=== PATIENT | female | born 1955 | race Caucasian/White ===

== ENCOUNTER 2020-07-10 09:34 | Outpatient (CLI) | payer BC, SELFPAY ==
--- NOTE | ~2020-07-10 | US_ITS ---
EXAMINATION: US thyroid DATE: 07/10/2020 10:40 INDICATION: Nontoxic single thyroid nodule. TECHNIQUE: Multiple ultrasound images of the thyroid were obtained. COMPARISON: Thyroid ultrasound 12/23/2014 FINDINGS: The right thyroid lobe measures 5.0 x 1.6 x 1.2 cm. The left thyroid lobe measures 5.2 x 1.5 x 1.2 c m. In the left thyroid lobe, there is an 8 mm solid, hypoechoic, iopjz-zigd-bvnu nodule with ill-def ined margin without echogenic foci (TI-RADS TR4). In the left thyroid lobe, there is a 5 mm solid, hy poechoic, pzvxj-xzwd-qjjz nodule with ill-defined margin without echogenic foci (TR4). There are two 3 mm nodules in right thyroid lobe. IMPRESSION: 1. Small thyroid nodules, likely not clinically significant. No follow-up is needed. Reviewed, dictated and finalized at location B. IMPRESSION: 1. Small thyroid nodules, likely not clinically significant. No follow-up is ne eded.
== END 2020-07-10 09:35 | disposition home or self-care (01) ==
PROVIDERS: PCP Internal Medicine; Visit Provider Internal Medicine
DX: E04.2 Nontoxic multinodular goiter (principal)
CPT/HCPCS: 76536

== ENCOUNTER 2022-03-05 10:03 | Outpatient (CLI) | payer BC, SELFPAY ==
--- NOTE | ~2022-03-05 | MM_ITS ---
EXAMINATION: MM screening se BI w simón HISTORY: Screening TECHNIQUE: Craniocaudal and mediolateral oblique 3-D tomosynthesis images were obtained and synthetic 2-D images were generated. CAD analysis was submitted and interpreted. COMPARISON: No prior mammogram is available for comparison at this institution. BREAST PARENCHYMAL COMPOSITION: There are scattered areas of fibroglandular density. FINDINGS: There is no evidence of suspicious mass, calcification, or architectural distortion to sugg est malignancy in either breast. There has been no suspicious interval change. IMPRESSION: 1. No mammographic evidence of malignancy. 2. Recommend routine screening mammography in one year. BI-RADS Category 1: Negative Reviewed, dictated and finalized at location A.
== END 2022-03-05 10:04 | disposition home or self-care (01) ==
PROVIDERS: PCP Internal Medicine; Visit Provider Internal Medicine
DX: Z12.31 Encounter for screening mammogram for malignant neoplasm of breast (principal)
CPT/HCPCS: 77063; 77067

== ENCOUNTER 2022-06-25 09:45 | Outpatient (CLI) | payer MEDICARE, SELFPAY ==
--- NOTE | ~2022-06-25 | DEXA_ITS ---
Bone Density Report Name: NUHA GARCIA Age: 67 Sex: Female Ethnicity: White Date of : 1955 Indication: postmenopausal; screening for osteoporosis; height loss; hysterectomy; Referring Provider: JESSICA BURK Study: Bone densitometry was performed. Exam Date: June 25, 2022 Accession number: [id number] Bone Density: Region BMD T-score Z-score Classification AP Spine(L1-L4) 1.003 -0.4 1.6 Normal Femoral Neck (Left) 0.769 -0.7 1.0 Normal Total Hip (Left) 0.916 -0.2 1.2 Normal Femoral Neck (Right) 0.776 -0.7 1.0 Normal Total Hip (Right) 0.910 -0.3 1.1 Normal Total Hip Mean 0.913 -0.3 1.2 Normal World Health Organization criteria for BMD impression classify patients as: Normal (T-score at or above -1.0), Osteopenia (T-score between -1.0 and -2.5), or Osteoporosis (T-score at or below -2.5). 10-year Fracture Risk: FRAX not reported because: All T-scores for Spine Total, Hip Total, Femoral Neck at or above -1.0 Clinical Information Provided by Patient: Has used the following medications: Vitamin D, Calcium Has the following medical conditions: Hysterectomy Patient maximum height was 67 Menopause Age: 46 Onset of menses at age 11 Number of children 0 Impression: The patient has normal bone mass. Discussion: BONE DENSITY IS ABOVE THE MINIMUM DESIRABLE LEVEL AT ALL SKELETAL SITES TESTED. This patient?s bone mineral density is above the minimum desirable level (T-score -1.0 or better) at all sites measured. The patient should follow a healthful lifestyle (good nutrition with adequate calcium and vitamin D, and appropriate weight-bearing exercise). Follow-Up: Consider repeating this study in 5 years or sooner if there is some new clinical indication. Reported by: HILARIO on 06/25/2022 10:04:00 AM. Reviewed, dictated and finalized at location ASuellen CAPUTO
== END 2022-06-25 09:46 | disposition home or self-care (01) ==
PROVIDERS: PCP Internal Medicine; Visit Provider Internal Medicine
DX: Z78.0 Asymptomatic menopausal state (principal)
CPT/HCPCS: 77080

== ENCOUNTER 2023-07-20 10:01 | Outpatient (CLI) | payer MEDICARE, SELFPAY ==
--- NOTE | ~2023-07-20 | MM_ITS ---
EXAMINATION: MM screening se BI w simón HISTORY: Screening mammogram TECHNIQUE: Craniocaudal and mediolateral oblique 3-D tomosynthesis images were obtained and synthetic 2-D images were generated. CAD analysis was submitted and interpreted. COMPARISON: March 05, 2022 bilateral screening mammogram BREAST PARENCHYMAL COMPOSITION: There are scattered areas of fibroglandular density. FINDINGS: There is no evidence of suspicious mass, calcification, or architectural distortion to sugg est malignancy in either breast. There has been no suspicious interval change. IMPRESSION: 1. No mammographic evidence of malignancy. 2. Recommend routine screening mammography in one year. BI-RADS Category 1: Negative Reviewed, dictated and finalized at location A.
== END 2023-07-20 10:02 | disposition home or self-care (01) ==
LOC: ANHIMG 10:04
PROVIDERS: PCP Internal Medicine; Visit Provider Internal Medicine
DX: Z12.31 Encounter for screening mammogram for malignant neoplasm of breast (principal)
CPT/HCPCS: 77063; 77067

== ENCOUNTER 2023-12-07 13:55 | Emergency (ER) | payer MEDICARE, SELFPAY ==
--- NOTE | ~2023-12-07 | XR_ITS ---
XR ankle RT min 3V DATE: 12/07/2023 14:30 INDICATION: Ankle fracture TECHNIQUE: 4 views COMPARISON: None FINDINGS: There is a 1.6 mm posterolaterally fracture of the lateral malleolus and 1.9 mm laterally d isplaced medial malleolar fracture. There are 2 screws in the distal shaft of the first metatarsal bone. There is mild inferior calcaneal enthesopathy. IMPRESSION: Bimalleolar fracture Reviewed, dictated and finalized at location B. CUTTER IMPRESSION: Bimalleolar fracture
[2023-12-07 14:02] VITALS: BP 133/84; PULSE 74; RESP 16; TEMP 36.6; O2SAT 98
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
== END 2023-12-07 15:23 | disposition home or self-care (01) ==
PROVIDERS: Emergency Provider Nurse Practitioner Family; PCP Internal Medicine
DX: S82.841A Displaced bimalleolar fracture of right lower leg, initial encounter for closed fracture (principal); E03.9 Hypothyroidism, unspecified; W01.0XXA Fall on same level from slipping, tripping and stumbling without subsequent striking against object, initial encounter
CPT/HCPCS: 73610; 99213; G0463

== ENCOUNTER 2024-06-17 13:09 | Emergency (ER) | payer MEDICARE, SELFPAY ==
[2024-06-17 13:28] VITALS: BP 92/60; PULSE 63; RESP 16; TEMP 36.4; O2SAT 99
--- NOTE | 2024-06-17 13:29 | ED.SKABFB ---
HPI - Skin/Abscess/Foreign Bdy General Chief complaint: Skin/Abscess/Foreign Body Stated complaint: rash all over body, pos spider bite Time Seen by Provider: 06/17/24 13:29 Source: patient, RN notes reviewed and old records reviewed Mode of arrival: ambulatory Limitations: no limitations History of Present Illness HPI narrative: patient presents complaining of a diffuse rash. She reports that she noticed an itchy bump on the back of her neck approximately 4 days ago, she reports that it felt like a mosquito bite and when her family members looked at it they said that is what it looked like. She reports that several hours later she began to notice a rash to arms, legs, trunk. She reports the rash has been spreading. She denies any shortness of breath. She reports that the rash is itchy. She denies any contact with noxious plants. She denies any change in lotions, soaps, perfumes. She denies eating any unusual foods. She voices no other concerns or complaints at this time Related Data Allergies Allergy/AdvReac Type Severity Reaction Status Date / Time codeine Allergy Unknown unknown Verified 06/17/24 13:34 Review of Systems Review of Systems: All systems reviewed & are unremarkable except as noted in HPI and below Constitutional: Constitutional: Reports no additional constitutional complaints ENT: Reports system reviewed and no additional complaints, except as documented Cardiovascular: Cardiovascular: Reports no additional cardiovascular complaints Respiratory: Respiratory: Reports no additional respiratory complaints Gastrointestinal: Gastrointestinal: Reports no additional gastrointestinal complaints Integumentary/Breasts: Skin/Breast: Reports pruritus and Reports rash Allergic/Immunologic: Allergic/Immunologic: Reports as per HPI, Denies throat swelling, Denies tongue swelling and Denies wheezing PMFSH Past Medical History Medical History Depression Hypothyroid Surgical History Surgical History H/O: hysterectomy History of foot surgery bilateral bunionectomy Family History Family History Mother Family history of dementia Patient's mother is Other Diabetes mellitus Family history of Alzheimer's disease Family history of cardiovascular disease Family history of thyroid disease Social History Social History (Reviewed 06/17/24 @ 13:54 by SUMANTH Izquierdo Smoking status: Never smoker Second hand tobacco smoke exposure: No Alcohol intake: current Substance use type: does not use Do You Feel Safe in your Home?: Yes Lack of Transportation: No Lack of Food: Never True Current Housing: I Have Housing Concerned About Future Housing: No Difficulty Paying Gas/Electric Bills: No Difficulty Paying for Meds: No Currently Unemployed: No Education: Master's Degree or Higher Difficulty w/ Childcare or Family Care: No Living arrangements: with family Occupation/Education: retired Gender identity (if verbalized by the patient): Female Comments At the time of my signature, I reviewed and agree with the nursing past medical, surgical, social, and family history. There is no relevant family history pertinent to the patient complaint. Exam Const: General: cooperative, no acute distress, alert and awake Orientation/consciousness: oriented to person, oriented to place and oriented to time HENMT: Head: normal to inspection Resp: Effort & Inspection: normal respiratory effort and able to speak in complete sentences Auscultation: clear to auscultation bilaterally, no crackles, no rales, no rhonchi and no wheezes Cardio: Palpation: normal PMI Rate: regular rate Rhythm: regular rhythm Heart sounds: S1 normal heart sound present and S2 normal heart sound present Skin: Other: di
== END 2024-06-17 14:07 | disposition home or self-care (01) ==
PROVIDERS: Emergency Provider Nurse Practitioner Family; PCP Internal Medicine
DX: T78.49XA Other allergy, initial encounter (principal); W57.XXXA Bitten or stung by nonvenomous insect and other nonvenomous arthropods, initial encounter; E03.9 Hypothyroidism, unspecified; F32.A Depression, unspecified
CPT/HCPCS: 99213; G0463

== ENCOUNTER 2024-09-05 09:36 | Outpatient (CLI) | payer MEDICARE, SELFPAY ==
--- NOTE | ~2024-09-05 | MM_ITS ---
EXAMINATION: MM screening se BI w simón HISTORY: Screening TECHNIQUE: Craniocaudal and mediolateral oblique 3-D tomosynthesis images were obtained and synthetic 2-D images were generated. CAD analysis was submitted and interpreted. COMPARISON: Comparison to multiple prior studies sequentially, with oldest reviewed study dated 06/2022. BREAST PARENCHYMAL COMPOSITION: Not dense: There are scattered areas of fibroglandular density. FINDINGS: There is no evidence of suspicious mass, calcification, or architectural distortion to sugg est malignancy in either breast. There has been no suspicious interval change. IMPRESSION: 1. No mammographic evidence of malignancy. 2. Recommend routine screening mammography in one year. BI-RADS Category 1: Negative Reviewed, dictated and finalized at location B.
== END 2024-09-05 09:37 | disposition home or self-care (01) ==
LOC: ANHIMG 09:38
PROVIDERS: PCP Internal Medicine; Visit Provider Internal Medicine
DX: Z12.31 Encounter for screening mammogram for malignant neoplasm of breast (principal)
CPT/HCPCS: 77063; 77067

== ENCOUNTER 2024-12-19 07:50 | Outpatient (CLI) | payer MEDICARE, SELFPAY ==
--- OUTSIDE RECORDS SUMMARY | 2024-12-20 21:23 | XMS_ITS ---
Author Organization Unknown Address [address], [place] [id number] Phone Care Team Providers Care Roll Builder Name Role Phone AKI SHANE MARES Attending Unavailable Immunization Immunization Date Status Additional Notes Code Code System Pneumococcal conjugate PCV20 , polysaccharide [id number] conjugate, adjuvant, PF 03/15/2022 Completed 216 CVX COVID-19, mRNA, LNP-S, PF, 1 00 mcg/0.5mL dose or 50 mcg/0.25mL dose 04/05/2022 Completed 207 CVX COVID-19, mRNA, LNP-S, PF, 1 00 mcg/0.5mL dose or 50 mcg/0.25mL dose 10/30/2021 Completed 207 CVX COVID-19, mRNA, LNP-S, PF, 1 00 mcg/0.5mL dose or 50 mcg/0.25mL dose 02/25/2021 Completed 207 CVX COVID-19, mRNA, LNP-S, PF, 1 00 mcg/0.5mL dose or 50 mcg/0.25mL dose 01/27/2021 Completed 207 CVX Influenza, high-dose, trivalent, PF 09/11/2019 Completed 135 CVX Social History Type Status Start Date End Date Code Code Syst em Smoking History Never smoker (Never Smoked) [id number] SNOMED CT Sex Female Hospital Discharge Instructions Should you have any questions prior to discharge, please contact a member of your healthcare team. If you have left the hospital and have any questions, please contact your primary care physician. Reason For Referral No Data Found Plan of Treatment covid swab 5 min 06/29/2021 Encounters Encounter Diagnosis Start Date Code Code Sys tem Exposure to communicable disease 06/29/2021 [id number] SNOMED-CT Personal Care Team Section Performer Name Performer Role Active Date Inactive Da te
--- OUTSIDE RECORDS SUMMARY | 2024-12-20 21:23 | XMS_ITS ---
Author Organization Unknown Address [address], [place] [phone] Phone Immunization Immunization Date Status Additional Notes Code Code System Pneumococcal conjugate PCV20 , polysaccharide [id number] conjugate, adjuvant, PF 03/15/2022 Completed 216 CVX [...] em Smoking History Never smoker (Never Smoked) [id number] SNOMED CT Sex Female Hospital Discharge Instructions Should you have any questions prior to discharge, please contact a member of your healthcare team. If you have left the hospital and have any questions, please contact your primary care physician. Reason For Referral No Data Found Plan of Treatment covid swab 5 min 06/29/2021 Encounters Encounter Diagnosis Start Date Code Code Sys tem [id number] SNOMED-CT Personal Care Team Section Performer Name Performer Role Active Date Inactive Da te Progress Notes [facility] PT Initial Evaluation Scanned image
--- OUTSIDE RECORDS SUMMARY | 2024-12-20 21:24 | XMS_ITS ---
Author Organization Unknown Address [address], [place] [phone] Phone Care Team Providers Care Paintless Dent Repair Technician Name Role Phone BHARGAVI LUCEROFREDA Howell Attending Unavailable Immunization Immunization Date Status Additional Notes Code Code System Pneumococcal conjugate PCV20 , polysaccharide [id number] conjugate, adjuvant, PF 03/15/2022 Completed 216 CVX [...] em Smoking History Never smoker (Never Smoked) [id number] SNOMED CT Sex Female Hospital Discharge Instructions Should you have any questions prior to discharge, please contact a member of your healthcare team. If you have left the hospital and have any questions, please contact your primary care physician. Reason For Referral No Data Found Plan of Treatment covid swab 5 min 06/29/2021 Encounters Encounter Diagnosis Start Date Code Code Sys tem 03/15/2022 [id number] SNOMED-CT Personal Care Team Section Performer Name Performer Role Active Date Inactive Da te
== END 2024-12-19 07:51 | disposition home or self-care (01) ==
PROVIDERS: PCP Internal Medicine; Visit Provider Internal Medicine
DX: H91.90 Unspecified hearing loss, unspecified ear (principal)
CPT/HCPCS: 92557; 92567

== ENCOUNTER 2025-04-15 09:37 | Day surgery (SDC) | payer MEDICARE, SELFPAY ==
[2024-12-11 09:21] VITALS: BMI 27.1
--- NOTE | 2025-04-15 07:01 | P.PNAN_ITS ---
Anes - Initial Pre Proc Eval Procedure: Operation Date: 04/15/25 11:30 Proposed Procedures p Screening Colonoscopy - Jonnathan Hernandez MD Date/Time: 04/15/25 07:01 Surgeon: Jonnathan Hernandez MD Pre Op Diagnosis: History of Polyps Patient Data Age: 69 Gender: F Height: 1.7 m Weight: 78.471 kg Allergies Allergy/AdvReac Type Severity Reaction Status Date / Time codeine Allergy Unknown Vomiting Verified 04/15/25 10:02 Home Medications Medication Instructions Recorded Confirmed Type famotidine 40 mg tablet (Pepcid) 40 mg PO DAILY #7 tabs 06/17/24 04/15/25 Rx losartan 100 See Rx Instructions .Route 10/22/24 04/15/25 Rx mg-hydrochlorothiazide 12.5 mg .COMPLEX #100 tabs tablet escitalopram oxalate 20 mg tablet 20 mg PO DAILY #100 tabs 11/09/24 04/15/25 Rx levothyroxine 50 mcg tablet See Rx Instructions .Route 01/22/25 04/15/25 Rx .COMPLEX #100 tabs alprazolam 0.5 mg tablet 0.5 mg PO .hs PRN anxiety #90 tabs 01/30/25 04/15/25 Rx atorvastatin 20 mg tablet (Lipitor) 20 mg PO DAILY #30 tabs 04/08/25 04/15/25 Rx Patient hx anesthesia problems: none Family hx anesthesia problems: none Results Review: All pre-operative results and documents have been reviewed as part of the pre- operative evaluation. [facility] Past Medical History Medical History (Updated 04/08/25 @ 09:11 by GRANT Rebolledo) BMI 27.0-27.9,adult Other fatigue Hypercalcemia Essential (primary) hypertension ENRIQUE-inhibitor cough Hypothyroid Depression Surgical History Surgical History History of foot surgery bilateral bunionectomy H/O: hysterectomy Family History Family History Mother Family history of dementia Patient's mother is Father No problems noted. Sibling No problems noted. Other Diabetes mellitus Family history of Alzheimer's disease Family history of cardiovascular disease Family history of thyroid disease Social History Social History (Updated 04/08/25 @ 09:13 by Briana Juan [facility]) Smoking status: Never smoker Second hand tobacco smoke exposure: No Alcohol intake: current Alcohol use details: socially Substance use: never Substance use type: does not use Do You Feel Safe in your Home?: Yes Lack of Transportation: No Lack of Food: Never True Current Housing: I Have Housing Concerned About Future Housing: No Difficulty Paying Gas/Electric Bills: No Difficulty Paying for Meds: No Currently Unemployed: No Education: Master's Degree or Higher Difficulty w/ Childcare or Family Care: No Living arrangements: with family Occupation/Education: 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 Informed Consent: The patient's anesthetic plan and its attendant risks and benefits were discussed with the patient/family/POA. Questions were solicited and answers provided to the satisfaction of the patient/family/POA.
[2025-04-15 10:03] VITALS: BP 115/77; PULSE 73; RESP 15; TEMP 36.6; O2SAT 100
[2025-04-15] MEDS: LACTATED RINGERS 1,000 ML 150 ML IV CONT (10:07)
--- OUTSIDE RECORDS SUMMARY | 2025-04-15 10:15 | XMS_ITS ---
Author Organization Unknown Address [address], [place] [phone] Phone Immunization Immunization Date Status Additional Notes Code Code System Pneumococcal conjugate PCV20 , polysaccharide [id number] conjugate, adjuvant, PF 03/15/2022 Completed 216 CVX [...] em Smoking History Never smoker (Never Smoked) [id number] SNOMED CT Sex Female Hospital Discharge Instructions Should you have any questions prior to discharge, please contact a member of your healthcare team. If you have left the hospital and have any questions, please contact your primary care physician. Reason For Referral No Data Found Plan of Treatment covid swab 5 min 06/29/2021 Encounters Encounter Diagnosis Start Date Code Code Sys tem [id number] SNOMED-CT Personal Care Team Section Performer Name Performer Role Active Date Inactive Da te Progress Notes [facility] PT Initial Evaluation Scanned image
--- OUTSIDE RECORDS SUMMARY | 2025-04-15 10:15 | XMS_ITS | Clinical Summary ---
Author Organization [facility] Address [address] [place] [address] Care Team Providers Care Claims Analyst Name Role Phone Camden Sandoval DO Primary Care Provider [phone] Source Comments [facility],non-owned Affiliates and Associated Physician Practices is amultiple site organization consisting of ambulatory clinics and hospital sitesin [place], [place], [place] and [place]. This disclosure is being madepursuant to the Care Everywhere program and may not contain all information available regarding this patient. Last updated 18.[facility] Social History Tobacco Use Types Packs/Day Years Used Date Smoking Tobacco: Never Assessed Comments Unknown Sex and Gender Information Value Date Recorded Sex Assigned at Not on file Legal Sex Female 6:21 AM [employer] Gender Identity Not on file Sexual Orientation Not on file Plan of Treatment Health Maintenance Due Date Last Done Comments BONE DENSITY TESTING 1955 COLOGUARD (AGES 45-75) - COL ON CA SCREENING 1955 COLON MONITORING 1954 COLONOSCOPY - COLON CA SCREENING 1954 CT COLONOGRAPHY - COLON CA SCREENING 1955 Colorectal Cancer Screening 1955 FIT - COLON CA SCREENING 1954 FLEX SIG - COLON CA SCREENING 1954 LIPID TESTING 1955 MAMMOGRAM 1955 HEPATITIS C SCREENING 06/10/1972 DTAP/TDAP/TD VACCINES (1 - Tdap) 1973 PNEUMOCOCCAL VACCINE 50+ (1 of 1 - PCV) 2004 ZOSTER VACCINE (1 of 2) 2004 COVID-19 VACCINE ( - 2023-2 5 season) 2024 DEPRESSION SCREENING 11/28/2024 INFLUENZA VACCINE (Season Ended) 2025 Respiratory Syncytial Virus (RSV) Vaccine Pt: or over 60 yrs (1 - 1-dose 75+ series) 2029 HEPATITIS B VACCINE Aged Out No longe r eligible based on patient's age to complete this topic HIB VACCINE Aged Out No longer eligi ble based on patient's age to complete this topic HPV VACCINE Aged Out No longer eligi ble based on patient's age to complete this topic MENINGOCOCCAL (Group B) VACC INE SHARED DECISION-MAKING Aged Out No longer eligibl e based on patient's age to complete this topic MENINGOCOCCAL GROUPS A/C/Y/W VACCINE Aged Out No longer eligible b ased on patient's age to complete this topic Insurance [facility] Care Teams Claims Analyst Relationship Specialty Start Date End Date Camden Sandoval DO [address] [place], [place] [id number] PCP - General 11/26/19
--- OUTSIDE RECORDS SUMMARY | 2025-04-15 10:16 | XMS_ITS ---
Author Organization Unknown Address [address], [place] [id number] Phone Care Team Providers Care Special Education Assistant Name Role Phone BHARGAVI LUCEROFREDA Howell Attending Unavailable Immunization Immunization Date Status Additional Notes Code Code System Pneumococcal conjugate PCV20 , polysaccharide [id number] conjugate, adjuvant, PF 03/15/2022 Completed 216 CVX [...] em Smoking History Never smoker (Never Smoked) [id number] SNOMED CT Sex Female Hospital Discharge Instructions Should you have any questions prior to discharge, please contact a member of your healthcare team. If you have left the hospital and have any questions, please contact your primary care physician. Reason For Referral No Data Found Plan of Treatment covid swab 5 min 06/29/2021 Encounters Encounter Diagnosis Start Date Code Code Sys tem 03/15/2022 [id number] SNOMED-CT Personal Care Team Section Performer Name Performer Role Active Date Inactive Da te
--- OUTSIDE RECORDS SUMMARY | 2025-04-15 10:16 | XMS_ITS ---
Author Organization Unknown Address [address], [place] [phone] Phone Care Team Providers Care X Ray Technician Name Role Phone AKI SHANE MARES Attending Unavailable Immunization Immunization Date Status Additional Notes Code Code System Pneumococcal conjugate PCV20 , polysaccharide [id number] conjugate, adjuvant, PF 03/15/2022 Completed 216 CVX [...] em Smoking History Never smoker (Never Smoked) [id number] SNOMED CT Sex Female Hospital Discharge Instructions [...] Sys tem Exposure to communicable disease 06/29/2021 [id number] SNOMED-CT Personal Care Team Section Performer Name Performer Role Active Date Inactive Da te
--- NOTE | 2025-04-15 11:34 | PM.IMHP ---
H&P: HPI History of Present Illness Date/Time: 04/15/25 11:34 Chief Complaint: History of colon polyps Narrative: The patient has a history of colonic polyps, the last colonoscopy was 5 years ago. Review of Systems Review of Systems: All systems reviewed & are unremarkable except as noted in HPI and below PMFSH Past Medical History Medical History (Updated 04/15/25 @ 11:35 by Jonnathan Hernandez MD) BMI 27.0-27.9,adult Other fatigue Hypercalcemia Essential (primary) hypertension ENRIQUE-inhibitor cough Hypothyroid Depression Surgical History Surgical History History of foot surgery bilateral bunionectomy H/O: hysterectomy Family History Family History Mother Family history of dementia Patient's mother is Father No problems noted. Sibling No problems noted. Other Diabetes mellitus Family history of Alzheimer's disease Family history of cardiovascular disease Family history of thyroid disease Social History Social History (Updated 04/08/25 @ 09:13 by GRANT Rebolledo) Smoking status: Never smoker Second hand tobacco smoke exposure: No Alcohol intake: current Alcohol use details: socially Substance use: never Substance use type: does not use Do You Feel Safe in your Home?: Yes Lack of Transportation: No Lack of Food: Never True Current Housing: I Have Housing Concerned About Future Housing: No Difficulty Paying Gas/Electric Bills: No Difficulty Paying for Meds: No Currently Unemployed: No Education: Master's Degree or Higher Difficulty w/ Childcare or Family Care: No Living arrangements: with family Occupation/Education: retired Additional occupation/education comments: Director [employer] Gender identity (if verbalized by the patient): Female Meds Home Medications and Allergies Home Medications Medication Instructions Recorded Confirmed Type famotidine 40 mg tablet (Pepcid) 40 mg PO DAILY #7 tabs 06/17/24 04/15/25 Rx losartan 100 See Rx Instructions .Route 10/22/24 04/15/25 Rx mg-hydrochlorothiazide 12.5 mg .COMPLEX #100 tabs tablet escitalopram oxalate 20 mg tablet 20 mg PO DAILY #100 tabs 11/09/24 04/15/25 Rx levothyroxine 50 mcg tablet See Rx Instructions .Route 01/22/25 04/15/25 Rx .COMPLEX #100 tabs alprazolam 0.5 mg tablet 0.5 mg PO .hs PRN anxiety #90 tabs 01/30/25 04/15/25 Rx atorvastatin 20 mg tablet (Lipitor) 20 mg PO DAILY #30 tabs 04/08/25 04/15/25 Rx Allergies Allergy/AdvReac Type Severity Reaction Status Date / Time codeine Allergy Unknown Vomiting Verified 04/15/25 10:02 Vital Signs Vital Signs - 24 hr 04/15/25 10:03 Temperature 98 F Pulse Rate 73 Respiratory Rate 15 Blood Pressure 115/77 Pulse Oximetry 100 Oxygen Delivery Room Air Exam Const: General: cooperative and healthy appearing Resp: Effort & Inspection: normal respiratory effort and able to speak in complete sentences Auscultation: clear to auscultation bilaterally Cardio: Rate: regular rate Rhythm: regular rhythm GI: Inspection: normal to inspection GI Palp: No No hepatosplenomegaly present Auscultation: normal bowel sounds Rectal Exam: deferred Skin: General skin exam: normal color Psych: Appearance: grossly normal Mental Status: mental status grossly normal Assessment and Plan Assessment and plan (1) History of colonic polyps: Code(s): Z86.0100 - Personal history of colon polyps, unspecified Status: Acute Assessment and Plan: The patient is deemed a good candidate for the procedure. Consent signed. Will proceed.
[2025-04-15 12:06] VITALS: BP 108/71; PULSE 66; RESP 14; O2SAT 98
[2025-04-15 12:16] VITALS: BP 93/54; PULSE 63; RESP 15; O2SAT 99
[2025-04-15 12:26] VITALS: BP 108/64; PULSE 77; RESP 16; O2SAT 100
[2025-04-15 12:31] VITALS: BP 107/57; PULSE 60; RESP 15; O2SAT 100
--- NOTE | 2025-04-15 13:18 | WPDANESPN ---
Anes - Prog Note Post-Op Date/Time: 04/15/25 13:18 Cardiovascular status: normal Respiratory status: normal Airway patency: baseline Mental status: baseline Post-Op hydration status: normal Vital Signs: Last Vital Signs Temp 36.6 C 04/15/25 10:03 Pulse 60 04/15/25 12:31 Resp 15 04/15/25 12:31 BP 107/57 L 04/15/25 12:31 Pulse Ox 100 04/15/25 12:31 O2 Del Method Room Air 04/15/25 12:31 Pain Score (VAS): 0 I/O: Intake & Output 04/14/25 04/15/25 04/15/25 23:59 07:59 15:59 Intake Total 500 Balance 500 Post-procedural complaints: none Patient Feedback: Patient satisfied with anesthetic care. Other Findings: Patient vital signs back to baseline. Patient denies nausea and vomiting. Patient's pain under control. Patient OK for discharge.
== END 2025-04-15 12:50 | disposition home or self-care (01) ==
PROVIDERS: PCP Internal Medicine; Visit Provider Internal Medicine Gastroenterology
PROC: 0DJD8ZZ Inspection of Lower Intestinal Tract, Via Natural or Artificial Opening Endoscopic (ICD-10-PCS; CPT 45378; principal; 2025-04-15 11:30)
DX: Z12.11 Encounter for screening for malignant neoplasm of colon (principal); K57.30 Diverticulosis of large intestine without perforation or abscess without bleeding; Z86.0100 Personal history of colon polyps, unspecified
CPT/HCPCS: G0105

== ENCOUNTER 2025-10-30 11:16 | Outpatient (CLI) | payer MEDICARE, SELFPAY ==
--- NOTE | ~2025-10-30 | XR_ITS ---
EXAMINATION: XR hip RT min 2V, 10/30/2025 11:50 AUDIOVISUAL AIDS TECHNICIAN HISTORY: M25.559 - Pain in unspecified hip NO INJ X 18 MOS COMPARISON: No comparisons available. Findings: No acute fracture or malalignment. No significant degenerative changes. Soft tissues unremarkable. Impression: No acute fracture or malalignment. Reviewed, dictated and finalized at location P. OVISUAL AIDS TECHNICIAN Impression: No acute fracture or malalignment.
--- OUTSIDE RECORDS SUMMARY | 2025-10-30 12:58 | XMS_ITS ---
Author Organization Unknown Address [address], [place] [phone] Phone Immunization Immunization Date Status Additional Notes Code Code System COVID-19, mRNA, LNP-S, PF, 5 0 mcg/0.5 mL 09/24/2024 Completed 312 CVX COVID-19, mRNA, LNP-S, PF, 5 0 mcg/0.5 mL 09/29/2023 Completed 312 CVX COVID-19, mRNA, LNP-S, bivalent, PF, 30 mcg/0.3 mL dose 09/10/2022 Completed 300 CVX Pneumococcal conjugate PCV20 , polysaccharide [id number] conjugate, adjuvant, PF 03/15/2022 Completed 216 CVX [...] dose 01/27/2021 Completed 207 CVX Influenza, high-dose, quadrivalent, PF 09/10/2022 Completed 197 CVX Influenza, recombinant, quadrivalent, PF 09/29/2023 Completed 185 CVX Influenza, high-dose, trivalent, PF 09/24/2024 Completed 135 CVX Influenza, high-dose, trivalent, PF 09/11/2019 Completed 135 CVX Social History Type Status Start Date End Date Code Code Syst em Smoking History Never smoker (Never Smoked) [id number] SNOMED CT Sex Female Hospital Discharge Instructions Should you have any questions prior to discharge, please contact a member of your healthcare team. If you have left the hospital and have any questions, please contact your primary care physician. Reason For Referral No Data Found Plan of Treatment covid swab 5 min 06/29/2021 Encounters Encounter Diagnosis Start Date Code Code Sys [facility] [id number] SNOMED-CT Personal Care Team Section Progress Notes [facility] PT Initial Evaluation Scanned image
--- OUTSIDE RECORDS SUMMARY | 2025-10-30 12:58 | XMS_ITS ---
Author Organization Unknown Address [address], [place] [phone] Phone Care Team Providers Care Trucksmith Name Role Phone BHARGAVI LOPEZ Lynda Attending Unavailable Immunization Immunization Date Status Additional Notes Code Code System COVID-19, mRNA, LNP-S, PF, 5 0 mcg/0.5 mL 09/24/2024 Completed 312 CVX COVID-19, mRNA, LNP-S, PF, 5 0 mcg/0.5 mL 09/29/2023 Completed 312 CVX COVID-19, mRNA, LNP-S, bivalent, PF, 30 mcg/0.3 mL dose 09/10/2022 Completed 300 CVX Pneumococcal conjugate PCV20 , polysaccharide [id number] conjugate, adjuvant, PF 03/15/2022 Completed 216 CVX [...] em Smoking History Never smoker (Never Smoked) [id number] SNOMED CT Sex Female Hospital Discharge Instructions Should you have any questions prior to discharge, please contact a member of your healthcare team. If you have left the hospital and have any questions, please contact your primary care physician. Reason For Referral No Data Found Plan of Treatment covid swab 5 min 06/29/2021 Encounters Encounter Diagnosis Start Date Code Code Sys tem 03/15/2022 [id number] SNOMED-CT Personal Care Team Section
--- OUTSIDE RECORDS SUMMARY | 2025-10-30 12:58 | XMS_ITS | Clinical Summary ---
Author Organization [facility] Address [address] [place] [address] Care Team Providers Care Consultant Technology Name Role Phone Camden Sandoval DO Primary Care Provider [phone] Source Comments [facility] [employer],non-owned Affiliates and Associated Physician Practices is amultiple site organization consisting of ambulatory clinics and hospital sitesin [place], [place], [place] and [place]. This disclosure is being madepursuant to the Care Everywhere program and may not contain all information available regarding this patient. 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
--- OUTSIDE RECORDS SUMMARY | 2025-10-30 12:59 | XMS_ITS ---
Author Organization Unknown Address [address], [place] [phone] Phone Care Team Providers Care Patented Hogshead Assembler Name Role Phone ASHLEY THOMAS Attending Unavailable Immunization Immunization Date Status Additional Notes Code Code System COVID-19, mRNA, LNP-S, PF, 5 0 mcg/0.5 mL 09/24/2024 Completed 312 CVX COVID-19, mRNA, LNP-S, PF, 5 0 mcg/0.5 mL 09/29/2023 Completed 312 CVX COVID-19, mRNA, LNP-S, bivalent, PF, 30 mcg/0.3 mL dose 09/10/2022 Completed 300 CVX Pneumococcal conjugate PCV20 , polysaccharide [id number] conjugate, adjuvant, PF 03/15/2022 Completed 216 CVX [...] em Smoking History Never smoker (Never Smoked) [id number] SNOMED CT Sex Female Hospital Discharge Instructions Should you have any questions prior to discharge, please contact a member of your healthcare team. If you have left the hospital and have any questions, please contact your primary care physician. Reason For Referral No Data Found Plan of Treatment covid swab 5 min 06/29/2021 Encounters Encounter Diagnosis Start Date Code Code Sys tem 05/28/2025 [id number] SNOMED-CT Personal Care Team Section Progress Notes [facility] PT Initial Evaluation Scanned image
--- OUTSIDE RECORDS SUMMARY | 2025-10-30 12:59 | XMS_ITS ---
Author Organization Unknown Address [address], [place] [phone] Phone Care Team Providers Care Commercial Loan Analyst Name Role Phone AKI MARES Attending Unavailable Immunization Immunization Date Status Additional Notes Code Code System COVID-19, mRNA, LNP-S, PF, 5 0 mcg/0.5 mL 09/24/2024 Completed 312 CVX COVID-19, mRNA, LNP-S, PF, 5 0 mcg/0.5 mL 09/29/2023 Completed 312 CVX COVID-19, mRNA, LNP-S, bivalent, PF, 30 mcg/0.3 mL dose 09/10/2022 Completed 300 CVX Pneumococcal conjugate PCV20 , polysaccharide [id number] conjugate, adjuvant, PF 03/15/2022 Completed 216 CVX [...] em Smoking History Never smoker (Never Smoked) [id number] SNOMED CT Sex Female Hospital Discharge Instructions [...] Sys tem Exposure to communicable disease 06/29/2021 [id number] SNOMED-CT Personal Care Team Section
== END 2025-10-30 11:17 | disposition home or self-care (01) ==
PROVIDERS: PCP Internal Medicine; Visit Provider Internal Medicine
DX: M25.551 Pain in right hip (principal); G89.29 Other chronic pain
CPT/HCPCS: 73502

== ENCOUNTER 2025-11-01 13:50 | Outpatient (CLI) | payer MEDICARE, SELFPAY ==
--- NOTE | ~2025-11-01 | MM_ITS ---
EXAMINATION: MM screening se BI w simón HISTORY: Screening. TECHNIQUE: Craniocaudal and mediolateral oblique 3-D tomosynthesis images were obtained and synthetic 2-D images were generated. CAD analysis was submitted and interpreted. COMPARISON: 2023, 2022, and 2021. BREAST PARENCHYMAL COMPOSITION: Not Dense: There are scattered areas of fibroglandular FINDINGS: No suspicious masses are seen. There are no suspicious calcifications. No unexplained architectural distortion is seen. There are no skin or nipple abnormalities identified. There is no adenopathy seen on the images submitted. IMPRESSION: No mammographic or sonographic evidence to suggest malignancy is seen. The patient may return to screening mammography as per ACR guidelines. BI-RADS 1 - Negative. Reviewed, dictated and finalized at location B. RNMENT RELATIONS MANAGER IMPRESSION: No mammographic or sonographic evidence to suggest malignancy is seen. The kaden ent may return to screening mammography as per ACR guidelines. BI-RADS 1 - Negative.
== END 2025-11-01 13:51 | disposition home or self-care (01) ==
LOC: ANHFOHIMG 13:53
PROVIDERS: PCP Internal Medicine; Visit Provider Internal Medicine
DX: Z12.31 Encounter for screening mammogram for malignant neoplasm of breast (principal)
CPT/HCPCS: 77063; 77067